=== PATIENT | male | born 1945 | race Caucasian/White ===

== ENCOUNTER 2019-01-26 11:36 | Day surgery (SDC) | payer MEDICARE, BC ==
[~2019-01-26] VITALS: Ht 177.8 cm; Wt 93.7 kg
[~2019-01-26 11:36] MED LIST: Calan Sr180 MG PO; DONE5 PO; GABA800 PO; Gabapentin600 MG PO; Hydrocodone-Ap1 EA20 PO; Inderal 20 mg T20 MG PO; LISI5 PO; Morphine Sulfat15 MG PO; PROP10 PO; Red Yeast Rice600 MG PO; TAMS.4ER PO; UBID10 PO; VENL37.5 PO; XYZAL5 MG PO
--- NOTE | 2019-01-26 12:47 | NUR ---
01/26/19 1247 Sherry Valentine PREOP TEACHING COMPLETED AT THIS TIME. SARAVANAN AT BEDSIDE. PT UPDATED OF POSSIBLE DELAY IN START TIME.
== END 2019-01-26 14:43 | disposition home or self-care (01) ==
LOC: ORSCSDS 11:36
PROVIDERS: Surgery
PROC: 0DBH8ZX Excision of Cecum, Via Natural or Artificial Opening Endoscopic, Diagnostic (ICD-10-PCS; principal; 2019-01-26 13:00)
DX: Z12.11 Encounter for screening for malignant neoplasm of colon (principal); Z86.010 Personal history of colon polyps; D12.0 Benign neoplasm of cecum; K57.30 Diverticulosis of large intestine without perforation or abscess without bleeding; G47.33 Obstructive sleep apnea (adult) (pediatric); I10 Essential (primary) hypertension; Z79.899 Other long term (current) drug therapy
CPT/HCPCS: 88305; J7120

== ENCOUNTER 2019-07-30 08:29 | Day surgery (SDC) | payer MEDICARE, BC ==
[~2019-07-30] VITALS: Ht 177.8 cm; Wt 93.8 kg
--- NOTE | 2019-07-30 09:18 | NUR ---
History, Chart, Medications and Allergies reviewed before start of procedure. Patient States Post-Procedure ride home has been arranged. Lungs clear T/O to Auscultation.
--- NOTE | 2019-07-30 13:54 | NUR ---
Discharge instructions reviewed with patient. Patient verbalizes understanding. Copy given to patient to take home. DERMABOND IN PLACED, TOLERATED PO CRACKERS AND WATER WELL, PT WAS ABLE TO VOID IN URINAL PRIOR TO DISCHARGE, APPROX 50 CC X2 VOIDS. VSS. AT BEDSIDE. RX GIVEN TO PT AND WILL TAKE TO [facility]. Discharged via wheelchair to private car for ride home. SCROTAL SUPPORT GIVEN WELL.
== END 2019-07-30 22:47 | disposition home or self-care (01) ==
LOC: ORSCMMR 08:29 → ORD 09:30 → ORSCMMR 10:00 → ORD 10:00 → ORSCMMR 22:47
PROVIDERS: Surgery
PROC: 8E0W4CZ Robotic Assisted Procedure of Trunk Region, Percutaneous Endoscopic Approach (ICD-10-PCS; principal; 2019-07-30 10:00)
PROC: 0YU54JZ Supplement Right Inguinal Region with Synthetic Substitute, Percutaneous Endoscopic Approach (ICD-10-PCS; principal; 2019-07-30 10:00)
DX: K40.91 Unilateral inguinal hernia, without obstruction or gangrene, recurrent (principal); I10 Essential (primary) hypertension; G47.33 Obstructive sleep apnea (adult) (pediatric); E78.00 Pure hypercholesterolemia, unspecified; Z79.899 Other long term (current) drug therapy
CPT/HCPCS: 49651; S2900; A9270-GY; C1781; J0690; J1100; J1885; J2250; J2405; J2704; J3010; J7120

== ENCOUNTER → 2021-12-04 | Outpatient (CLI) | payer MEDICARE, BC | END | disposition home or self-care (01) | LOC: LAB SHORT 15:11 | DX: L57.0 Actinic keratosis (principal); L81.4 Other melanin hyperpigmentation | CPT/HCPCS: 88305 ==

== ENCOUNTER → 2023-10-01 | Outpatient (CLI) | payer MEDICARE, BC | LOC: LAB SHORT 07:53 → LAB 07:53 | DX: D48.5 Neoplasm of uncertain behavior of skin (principal) | CPT/HCPCS: 88305 ==

== ENCOUNTER 2023-12-11 18:50 | Emergency (ER) | payer MEDICARE, BC ==
[~2023-12-11] VITALS: Ht 177.8 cm; Wt 104.3 kg
[2023-12-11 19:29] LABS: BASOPHILS ABSOLUTE AUTO 0.01 K/mm3 (0.00-0.23); BASOPHILS PERCENT AUTO 0 % (0-2); EOSINOPHILS ABSOLUTE AUTO 0.01 K/mm3 (0.00-0.68); EOSINOPHILS PERCENT AUTO 0 % (0-6); Hematocrit 35.5 % (37.0-53.0); Hemoglobin 11.5 g/dL (13.5-17.5); IMMATURE GRAN ABSOLUTE AUTO 0.03 K/mm3 (0.00-0.10); IMMATURE GRAN PERCENT AUTO 0 % (0-1); LYMPHOCYTES ABSOLUTE AUTO 1.36 K/mm3 (0.84-5.20); LYMPHOCYTES PERCENT AUTO 19 % (21-46); MONOCYTES ABSOLUTE AUTO 0.47 K/mm3 (0.16-1.47); MONOCYTES PERCENT AUTO 7 % (4-13); Mean Corpuscular HGB Conc 32.4 g/dL (31.5-36.5); Mean Corpuscular Volume 87 fL (80-100); Mean Platelet Volume 10.8 fL (9.1-12.4); NEUTROPHILS ABSOLUTE AUTO 5.28 K/mm3 (1.96-9.15); NEUTROPHILS PERCENT AUTO 74 % (41-73); Platelet Count 185 K/mm3 (150-400); RDW Coefficient Variation 13.2 % (11.7-14.2); RDW Standard Deviation 41.2 fL (35.1-46.3); White Blood Cell Count 7.16 K/mm3 (4.00-11.30)
[2023-12-11] MEDS ORDERED: Ondansetron HCl 2 MG / ML 2ML Vial IV ONE (19:30)
[2023-12-11 19:41] LABS: Alanine Aminotransfer (ALT/SGP 19 U/L (12-78); Albumin, Blood 3.8 g/dL (3.4-5.0); Albumin/Globulin Ratio 1.1 (0.8-1.8); Alk Phos 72 U/L (50-136); Anion Gap 5 mmol/L (6-16); Aspartate Aminotrans (AST/SGOT 18 U/L (12-37); Bilirubin, Total 0.3 mg/dL (0.1-1.0); Blood Urea Nitrogen 18 mg/dL (8-24); CO2, Blood 27 mmol/L (21-32); Calcium, Blood 8.9 mg/dL (8.5-10.1); Chloride, Blood 108 mmol/L (98-108); Creatinine, Blood 0.72 mg/dL (0.60-1.20); Globulin, Blood 3.6 g/dL (2.2-4.0); Glomerular Filtration Rate 92 (60-); Glucose, Blood 169 mg/dL (70-99); Potassium, Blood 4.8 mmol/L (3.5-5.5); Sodium, Blood 140 mmol/L (136-145); Total Protein, Blood 7.4 g/dL (6.4-8.2)
[2023-12-11] MEDS ORDERED: Prochlorperazine Edisylate 10 mg Vial IV ONE (20:55)
[2023-12-11] MEDS ORDERED: Metoclopramide HCl 5MG / ML 2ML Vial IV PRN (21:35)
[2023-12-11] MEDS ORDERED: Ondansetron HCl 2 MG / ML 2ML Vial IV PRN (21:35)
[2023-12-11] MEDS ORDERED: Naloxone HCl 1MG / ML 2ML SYR IV ONE ×2 (21:35→23:30)
[2023-12-11] MEDS ORDERED: NS 1,000 ML IV SCH (21:35)
[2023-12-11 22:06] LABS: Influenza A, PCR NEGATIVE (NEGATIVE); Influenza B, PCR NEGATIVE (NEGATIVE); Resp Syncytial Virus, PCR NEGATIVE (NEGATIVE); SARS-Cov-2 (COVID-19) PCR, MMC NEGATIVE (NEGATIVE)
[2023-12-11 23:54] LABS: Base Excess Venous -0.2 mmol/L; PCO2 Venous 43.7 mmHg (38-42); pH Blood Venous 7.37 (7.34-7.37)
[2023-12-12 00:33] LABS: Source, Urine Clean Catch
[2023-12-12 00:36] LABS: Bilirubin, Urine Neg (Neg); Blood, Urine Neg (Neg); Glucose Qualitative, Urine Neg (Neg); Ketones, Urine Neg (Neg); Leukocyte Esterase, Urine Neg (Neg); Nitrite, Urine Neg (Neg); Protein, Urine Neg (Neg); Specific Gravity, Urine 1.025 (1.003-1.022); Urobilinogen, Urine NORM (Normal)
[2023-12-12 00:37] LABS: Appearance, Urine Clear (Clear); Color, Urine Yellow (P-Yellow)
[2023-12-12 00:43] LABS: Ethanol (Alcohol), Blood, Med <3 mg/dL
[2023-12-12 00:53] LABS: U Amphetamine Screen Not Detected; U Barbituate Screen Not Detected; U Benzodiazapine Screen Not Detected; U Buprenorphine Screen DETECTED; U Cannabinoids Screen Not Detected; U Cocaine Screen Not Detected; U Methadone Screen Not Detected; U Methamphetamine Screen Not Detected; U Opiates Screen Not Detected; U Oxycodone Screen Not Detected; U Phencyclidine Screen Not Detected
[2023-12-12 01:00] VITALS: BP 143/121
[2023-12-12] MEDS ORDERED: RX Prepack 2 Tabs Ondansetron ODT 4MG UD ONE (01:00)
[2023-12-12] MEDS ORDERED: PROM12.5S PR (01:04)
[2023-12-12] MEDS ORDERED: ONDA4ODT MM (01:04)
== END 2023-12-12 01:33 | disposition home or self-care (01) ==
LOC: ER 18:50
PROVIDERS: Student in an Organized Health Care Education/Training Program
DX: R40.4 Transient alteration of awareness (principal); R11.2 Nausea with vomiting, unspecified; T42.6X5A Adverse effect of other antiepileptic and sedative-hypnotic drugs, initial encounter; T50.7X5A Adverse effect of analeptics and opioid receptor antagonists, initial encounter; Z79.899 Other long term (current) drug therapy; Z88.1 Allergy status to other antibiotic agents; Z88.2 Allergy status to sulfonamides
CPT/HCPCS: 0241U; 51798; 70450; 71045; 80053; 81003; 82803; 85025; 93005; 93010; 96361; 96374; 96375; 99285-25; A9270; J0780; J2310; J2405; J7030

== ENCOUNTER 2025-01-10 09:33 | Inpatient (IN) | payer MEDICARE, BC ==
[~2025-01-10] VITALS: Ht 180.3 cm; Wt 102.1 kg
[~2025-01-10 09:33] MED LIST changes: +ONDA4ODT MM; +PROM12.5S PR
[2025-01-10 10:19] LABS: BASOPHILS ABSOLUTE AUTO 0.02 K/mm3 (0.00-0.23); BASOPHILS PERCENT AUTO 0 % (0-2); EOSINOPHILS ABSOLUTE AUTO 0.04 K/mm3 (0.00-0.68); EOSINOPHILS PERCENT AUTO 1 % (0-6); Hematocrit 36.2 % (37.0-53.0); Hemoglobin 12.1 g/dL (13.5-17.5); IMMATURE GRAN ABSOLUTE AUTO 0.01 K/mm3 (0.00-0.10); IMMATURE GRAN PERCENT AUTO 0 % (0-1); LYMPHOCYTES ABSOLUTE AUTO 1.22 K/mm3 (0.84-5.20); LYMPHOCYTES PERCENT AUTO 23 % (21-46); MONOCYTES ABSOLUTE AUTO 0.64 K/mm3 (0.16-1.47); MONOCYTES PERCENT AUTO 12 % (4-13); Mean Corpuscular HGB 28.5 pg (26.0-34.0); Mean Corpuscular HGB Conc 33.4 g/dL (31.5-36.5); Mean Corpuscular Volume 85 fL (80-100); Mean Platelet Volume 10.3 fL (9.1-12.4); NEUTROPHILS ABSOLUTE AUTO 3.41 K/mm3 (1.96-9.15); NEUTROPHILS PERCENT AUTO 64 % (41-73); Platelet Count 190 K/mm3 (150-400); RDW Coefficient Variation 13.6 % (11.7-14.2); RDW Standard Deviation 41.9 fL (35.1-46.3); Red Blood Cell Count 4.25 M/mm3 (4.30-5.90); White Blood Cell Count 5.34 K/mm3 (4.00-11.30)
[2025-01-10 10:49] LABS: International Normalized Ratio 0.96; Prothrombin Time Results 10.3 Sec (9.7-11.5)
[2025-01-10 10:56] LABS: Albumin, Blood 3.4 g/dL (3.4-5.0); Bilirubin, Total 0.2 mg/dL (0.1-1.0); Bun/Creatinine Ratio 20.9 (12.0-20.0); Calcium, Blood 8.4 mg/dL (8.5-10.1); Creatinine, Blood 0.81 mg/dL (0.60-1.20); Globulin, Blood 3.4 g/dL (2.2-4.0); Potassium, Blood 4.2 mmol/L (3.5-5.5); Total Protein, Blood 6.8 g/dL (6.4-8.2)
[2025-01-10] MEDS ORDERED: Aspirin 325 MG Tab PO ONE (11:25)
[2025-01-10] MEDS ORDERED: Clopidogrel Bisulfate 75 MG Tab PO ONE (11:25)
[2025-01-10] MEDS ORDERED: FLU VACC TS2024-25(6MOS UP)/PF 45 MCG/0.5 ML SYRINGE IM SCH (13:55)
[2025-01-10 15:14] LABS: CHOL/HDL RATIO 5.7; Cholesterol 257 mg/dL (50-200); HDL Cholesterol 45 mg/dL (>39); LDL/HDL RATIO 3.4; Low Density Lipoprotein Chol 151 mg/dL (0-110); Triglycerides 306 mg/dL (30-160); Very Low Density Lipoprot Chol 61 mg/dL (6-32)
[2025-01-10 16:55] VITALS: BP 153/75
[2025-01-10] MEDS ORDERED: DONEPEZIL HCL10 MG PO ×2 (17:27→17:28)
[2025-01-10] MEDS ORDERED: FURO20 PO (17:29)
[2025-01-10] MEDS ORDERED: TAMS.4ER PO (17:29)
[2025-01-10] MEDS ORDERED: ERLEADA60 MG PO (17:30)
[2025-01-10] MEDS ORDERED: METO50ER PO (17:31)
[2025-01-10] MEDS ORDERED: MEMA10 PO (17:31)
--- NOTE | 2025-01-10 18:09 | NUR ---
PT CAME FROM THE ED. PT HAS NO SOB, PAIN, CHEST PAIN OR DIZZINESS. PT IS ON ROOM AIR, SEE CHART FOR VITALS. PT HAS NO QUESTIONS OR CONCERNS AT THIS TIME.
[2025-01-10 21:17] VITALS: BP 151/73
[2025-01-11 00:47] VITALS: BP 156/69
[2025-01-11 04:23] VITALS: BP 152/77
[2025-01-11 05:17] LABS: BASOPHILS ABSOLUTE AUTO 0.03 K/mm3 (0.00-0.23); BASOPHILS PERCENT AUTO 1 % (0-2); EOSINOPHILS ABSOLUTE AUTO 0.06 K/mm3 (0.00-0.68); EOSINOPHILS PERCENT AUTO 1 % (0-6); Hematocrit 36.4 % (37.0-53.0); Hemoglobin 12.2 g/dL (13.5-17.5); IMMATURE GRAN ABSOLUTE AUTO 0.03 K/mm3 (0.00-0.10); IMMATURE GRAN PERCENT AUTO 1 % (0-1); LYMPHOCYTES ABSOLUTE AUTO 1.46 K/mm3 (0.84-5.20); LYMPHOCYTES PERCENT AUTO 27 % (21-46); MONOCYTES ABSOLUTE AUTO 0.63 K/mm3 (0.16-1.47); MONOCYTES PERCENT AUTO 12 % (4-13); Mean Corpuscular HGB Conc 33.5 g/dL (31.5-36.5); Mean Corpuscular Volume 84 fL (80-100); Mean Platelet Volume 10.5 fL (9.1-12.4); NEUTROPHILS ABSOLUTE AUTO 3.28 K/mm3 (1.96-9.15); NEUTROPHILS PERCENT AUTO 60 % (41-73); Platelet Count 183 K/mm3 (150-400); RDW Coefficient Variation 13.5 % (11.7-14.2); RDW Standard Deviation 41.5 fL (35.1-46.3); Red Blood Cell Count 4.35 M/mm3 (4.30-5.90); White Blood Cell Count 5.49 K/mm3 (4.00-11.30)
--- NOTE | 2025-01-11 05:21 | NUR ---
SHIFT SUMMARY PT HAS BEEN RESTING COMFORTABLY OVERNIGHT. HE HAS BEEN AOX4, CALM AND COOPERATIVE. PT STILL EXHIBITING LEFT SIDED WEAKNESS AND REPORTS ACHING PAIN IN LEFT SHOULDER AND LEFT CHEST. TELE IS ON. BED LOCKED IN LOWEST POSITION. PT HAD NO COMPLAINTS. NO ACUTE EVENTS OVERNIGHT.
[2025-01-11 05:54] LABS: Bun/Creatinine Ratio 20.8 (12.0-20.0); Calcium, Blood 8.4 mg/dL (8.5-10.1); Creatinine, Blood 0.82 mg/dL (0.60-1.20)
[2025-01-11] MEDS ORDERED: Pantoprazole Sodium 40 MG Tab PO SCH (06:00)
[2025-01-11 07:25] VITALS: BP 154/74
[2025-01-11] MEDS ORDERED: Aspirin 81 MG Chew PO SCH (09:00)
[2025-01-11] MEDS ORDERED: Clopidogrel Bisulfate 75 MG Tab PO SCH (09:00)
[2025-01-11] MEDS ORDERED: Atorvastatin 40 MG Tab PO SCH (09:00)
[2025-01-11] MEDS ORDERED: Enoxaparin 40 MG/0.4 ML SYR SC SCH (09:00)
[2025-01-11 12:53] VITALS: BP 136/84
[2025-01-11] MEDS ORDERED: LEVOCETIRIZINE D5 MG PO (14:52)
[2025-01-11 15:59] VITALS: BP 122/80
--- NOTE | 2025-01-11 17:47 | NUR ---
no changes for pt. pt has had no pain, sob or chest pain. pt has no questions or concerns at this time
[2025-01-11 20:37] VITALS: BP 147/92
[2025-01-11] MEDS ORDERED: Famotidine 20 MG Tab PO SCH (21:00)
[2025-01-11] MEDS ORDERED: Memantine HCL 5 MG Tab PO SCH (21:00)
[2025-01-11] MEDS ORDERED: Donepezil HCl 5 MG Tab PO SCH (21:00)
[2025-01-11] MEDS ORDERED: APALUTAMIDE 60 MG PO SCH (21:00)
[2025-01-12 00:21] VITALS: BP 141/69
[2025-01-12 04:12] VITALS: BP 142/79
--- NOTE | 2025-01-12 04:20 | NUR ---
SHIFT SUMMARY PT ALERT ORIENTED WITH INTERMITTENT CONFUSION AND FORGETFULNESS. REQUIRES SBA TO AMBULATE TO THE BATHROOM. HES VERY ADAMANT ABOUT GETTING UP AND REALLY QUICK. HE WILL BE UP OUT OF BED BY THE TIME WE GET IN THERE. HIS BED ALARMS ON AQT ALL TIMES. NO C/O PAIN THIS SHIFT. HES INC OF BLADDER. WILL USE THE TOILET OR URINAL BUT MOST OF THE TIME ITS TO LATE. VSS ON RA SATTING AT 96%. REMAINS ON TELEMETRY AT NSR AT 70. THERE WAITING ON A SNF TO DISCHARGE. 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 HES DUE TO DISCHARGE TO A SNF. HES RESTING IN BED AT THIS TIME WITH CALL LIGHT IN REACH AND BED ALARM ON
[2025-01-12 07:09] VITALS: BP 144/76
[2025-01-12] MEDS ORDERED: Tamsulosin HCl 0.4 MG Cap PO SCH ×2 (09:00→21:00)
[2025-01-12] MEDS ORDERED: Furosemide 20 MG Tab PO SCH (09:00)
[2025-01-12] MEDS ORDERED: Metoprolol Succinate 50 MG TABCR PO SCH (09:00)
[2025-01-12 16:30] VITALS: BP 147/71
[2025-01-12 19:53] VITALS: BP 146/69
[2025-01-13 04:28] VITALS: BP 137/75
--- NOTE | 2025-01-13 06:28 | NUR ---
SHIFT SUMMARY PT CONTINUES TO HAVE SLIGHT LEFT SIDED WEAKNESS. AMBULATES WITH WALKER AND 1 ASSIST. PT WITH URINARY URGENCY AND HAS SOME IMPULSIVITY RELATED TO THIS. PT SLEPT INTERMITTENTLY DURING THE NIGHT. BED IN LOWEST POSITION, CALL LIGHT WITHIN REACH, SIDERAILS UP X2.
[2025-01-13 07:39] VITALS: BP 160/75
--- NOTE | 2025-01-13 09:00 | NUR ---
pt sitting up in a chair, a/ox4, pleasant and cooperative with care, follows commands well, denies pain at this time, lungs are clear t/o, a bit dim in bases, resp even and unlabored, no cough noted, hrr, +1 edema noted to b/l le, ppp+1, cap refill<3 sec, vs stable, afebrile, piv to lfa, site is clear and patent, btx4, abd flat soft nontender, voids without diff, skin c/w/d, maew, kanu, call light in reach.
[2025-01-13] MEDS ORDERED: ASPI81CH PO (12:43)
[2025-01-13] MEDS ORDERED: ATOR80 PO (12:44)
[2025-01-13] MEDS ORDERED: CLOP75 PO (12:44)
[2025-01-13] MEDS ORDERED: LOSA25 PO (12:45)
[2025-01-13] MEDS ORDERED: FAMO20 PO (12:45)
--- NOTE | 2025-01-13 13:55 | NUR ---
Pt is being discharged on h/h, went over discharge instructions with him and family member, they verbalized understanding, piv removed intact, new medications faxed to [facility] on [address], will leave via wheelchair with all belongings when PT is finished working with him.
--- NOTE | 2025-01-13 14:21 | NUR ---
left via wheelchair with food and beverage manager in attendence, with all belongings.
== END 2025-01-13 14:13 | disposition home health service (06) | DRG 65 ==
LOC: ER 09:33 → ERHOLD 09:34 → MEDS 09:34
PROVIDERS: Emergency Medicine; ADMIT Family Medicine
DX: I63.81 Other cerebral infarction due to occlusion or stenosis of small artery (principal); C79.51 Secondary malignant neoplasm of bone; G81.94 Hemiplegia, unspecified affecting left nondominant side; I10 Essential (primary) hypertension; R29.810 Facial weakness; R29.704 NIHSS score 4; C61 Malignant neoplasm of prostate; E78.5 Hyperlipidemia, unspecified; N40.0 Benign prostatic hyperplasia without lower urinary tract symptoms; D64.9 Anemia, unspecified; R47.81 Slurred speech; G47.30 Sleep apnea, unspecified; I77.819 Aortic ectasia, unspecified site; I65.23 Occlusion and stenosis of bilateral carotid arteries; Z98.890 Other specified postprocedural states; Z88.2 Allergy status to sulfonamides; Z88.1 Allergy status to other antibiotic agents
CPT/HCPCS: 36415; 70450; 70496; 70498; 70551; 80048; 80053; 80061; 84484; 85025; 85610; 85730; 93005; 93010; 93306; 94760; 97112; 97116; 97162; 97165; 97530; 97535; 99285-25; A9270; G0378; J1650; Q9967

== ENCOUNTER → 2025-04-18 | Outpatient (CLI) | payer MEDICARE, BC ==
[~2025-04-18] MED LIST changes: +ASPI81CH PO; +ATOR80 PO; +CLOP75 PO; +DONEPEZIL HCL10 MG PO; +ERLEADA60 MG PO; +FAMO20 PO; +FURO20 PO; +LEVOCETIRIZINE D5 MG PO; +LOSA25 PO; +MEMA10 PO; +METO50ER PO
[2025-04-18 14:43] LABS: Adenovirus F 40/41 Not Detected (NOT DETECT); Astrovirus Not Detected (NOT DETECT); Campylobacter Sp Not Detected (NOT DETECT); Cryptosporidium Not Detected (NOT DETECT); Cyclospora Cayetanensis Not Detected (NOT DETECT); E. Coli O157 Not Detected (NOT DETECT); Entamoeba Histolytica Not Detected (NOT DETECT); Enteroaggregative E. coli-EAEC Not Detected (NOT DETECT); Enteropathogenic E. coli-EPEC Not Detected (NOT DETECT); Enterotoxigenic E. coli-ETEC Not Detected (NOT DETECT); Giardia Lamblia Not Detected (NOT DETECT); Norovirus GI/GII Not Detected (NOT DETECT); Plesiomonas Shigelloides Not Detected (NOT DETECT); Rotavirus A Not Detected (NOT DETECT); Salmonella Sp Not Detected (NOT DETECT); Sapovirus Not Detected (NOT DETECT); Shiga Toxin-prod E. coli-STEC Not Detected (NOT DETECT); Shigella/Enteroin E. coli-EIEC Not Detected (NOT DETECT); Vibrio Cholerae Not Detected (NOT DETECT); Vibrio Sp Not Detected (NOT DETECT); Yersinia Enterocolitica Not Detected (NOT DETECT)
== END | disposition home or self-care (01) ==
LOC: LAB SHORT 10:52 → LAB 10:52
PROVIDERS: Physician Assistant Medical
DX: A09 Infectious gastroenteritis and colitis, unspecified (principal)
CPT/HCPCS: 87507